=== PATIENT | female | born 1995 | race Caucasian/White ===

== ENCOUNTER 2019-06-18 11:50 | Emergency (ER) | payer BC ==
--- NOTE | 2019-06-18 12:44 | EDM.PDOC ---
ED HPI GENERAL MEDICAL PROBLEM - General Chief Complaint: Head Injury Stated Complaint: CONCUSSION Time Seen by Provider: 06/18/19 12:18 Source of Information: Reports: Patient, RN Notes Reviewed - History of Present Illness INITIAL COMMENTS - FREE TEXT/NARRATIVE: 24 year old female got "head butted by her dog that was running full speed" last evening. took a hard blow to her forehead. No LOC but nauseated moderate headache, dizzy since that time. No vomiting. Hx of prior mild concussion about 1 month ago as well. 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 Denies: Abdominal Pain, Vomiting Musculoskeletal: Denies: Neck Pain Neurological: Reports: Dizziness, Headache. Denies: Numbness, Tingling, Trouble Speaking, Difficulty Walking, Weakness ED EXAM, HEAD INJURY - Physical Exam Exam: See Below General Appearance: Alert, No Apparent Distress Head: Atraumatic. No: Facial Swelling, Facial Tenderness, Raccoon Eyes Eyes: Bilateral Eye: PERRL Ears: Normal External Exam Nose: Normal Inspection Throat/Mouth: Normal Inspection Neck: Full Range of Motion Respiratory: No Respiratory Distress, Lungs Clear, Normal Breath Sounds Cardiovascular: Regular Rate, Rhythm GI/Abdominal Exam: Soft, Non-Tender Back Exam: Normal Inspection Extremities: Normal Inspection, Normal Range of Motion Neurologic: No Motor/Sensory Deficits, Oriented x 3, Other (finger to nose normal) Skin: Normal Color, Warm/Dry Course - Vital Signs Last Recorded V/S: Last Vital Signs Temp 97.4 F 06/18/19 12:05 Pulse 81 06/18/19 12:05 Resp 13 06/18/19 12:05 BP 117/79 06/18/19 12:05 Pulse Ox 100 06/18/19 12:05 - Orders/Labs/Meds Meds: Medications Discontinued Medications Generic Name Dose Route Start Last Admin Trade Name Freq PRN Reason Stop Dose Admin Ondansetron HCl 4 mg 06/18/19 12:47 Zofran Odt PO 06/18/19 12:48 ONETIME ONE - Re-Assessments/Exams Free Text/Narrative Re-Assessment/Exam: 06/18/19 13:[address] not clinically indicated at this time. Departure - Departure Time of Disposition: 12:47 Disposition: Home, Self-Care 01 Condition: Fair Clinical Impression: Contusion of forehead - Discharge Information Prescriptions: Ondansetron [Zofran ODT] 4 mg PO Q6H PRN #5 tab.dis PRN Reason: Nausea/Vomiting Referrals: PCP,None [Primary Care Provider] - Forms: ED Department Discharge Additional Instructions: The symptoms you have of mild headache, nausea, dizziness are compatable with mild concussion. The treatment for concussion is physical rest and brain rest so no exertional activity for 1 week, brain rest especially important for the next 2 to 3 days. Zofran if needed for further nausea or vomiting. [facility] Follow up clinic if not back to normal within 5 to 7 days as expected. Return to ED as needed. Sepsis Event Note - Evaluation Sepsis Screening Result: No Definite Risk - Focused Exam Vital Signs: Vital Signs Temp Pulse Resp BP Pulse Ox 06/18/19 12:05 97.4 F 81 13 117/79 100 Date Exam was Performed: 06/18/19 Time Exam was Performed: 13:01
[2019-06-18] MEDS ORDERED: Ondansetron 4 MG Tab.DIS PO ONE (12:47)
== END 2019-06-18 13:50 | disposition home or self-care (01) ==
LOC: JD.ED 11:50
DX: S00.83XA Contusion of other part of head, initial encounter (principal); W54.1XXA Struck by dog, initial encounter
CPT/HCPCS: 99283; A9270

== ENCOUNTER 2022-06-21 13:43 | Emergency (ER) | payer BC ==
[2022-06-21] MEDS ORDERED: Sodium Chloride 0.9% 10 ML Syringe FLUSH PRN (14:22)
[2022-06-21] MEDS ORDERED: HYDROmorphone 0.5 MG/0.5 ML Syringe IVPUSH ONE (15:01)
[2022-06-21] MEDS ORDERED: Ondansetron 4 MG/2 ML SDV IVPUSH ONE (15:14)
[2022-06-21] MEDS ORDERED: ceFAZolin 2 GM in Sodium Chloride 0.9% 50 ML IV ONE (16:03)
== END 2022-06-21 17:21 | disposition home or self-care (01) ==
LOC: SUPCPDRO 13:43 → JD.ED 13:43
DX: T81.49XA Infection following a procedure, other surgical site, initial encounter (principal); L03.115 Cellulitis of right lower limb; Z79.82 Long term (current) use of aspirin
CPT/HCPCS: 36415; 80053; 85025; 86140; 96374; 96375; 99283; J0690; J1170; J2405; J3490